=== PATIENT | female | born 1995 | race Caucasian/White ===

== ENCOUNTER 2017-11-19 20:05 | Emergency (ER) | payer OTHER ==
[2017-11-19] MEDS ORDERED: Albuterol/Ipratropium NEB.SOL* Albuterol 2.5 MG/Ipratropium 0.5 MG 3 ML INH ONE (20:44)
[2017-11-19 20:52] LABS: ABS Basophils 0 10^3/ul (0-0.2); ABS Eosinophils 0 10^3/ul (0-0.6); ABS Monocytes 0.8 10^3/ul (0-0.8); ABS Neutrophils 3.9 10^3/ul (1.5-7.7); ABS Nucleated RBC 0 10^3/ul; Eosinophil % 0.4 % (0-6); Hematocrit 41 % (35-47); Hemoglobin 13.8 g/dl (12.0-16.0); Lymphocyte % 29.2 % (25-47); Mean Corpuscular HGB Conc 34 g/dl (31-36); Mean Corpuscular Hemoglobin 31 pg (27-31); Mean Corpuscular Volume 92 fL (80-97); Mean Platelet Volume 9 um3 (7.4-10.4); Nucleated Red Blood Cells % 0; Platelet Count 221 10^3/ul (150-450); Red Blood Count 4.43 10^6/ul (4.0-5.4); Red Cell Distribution Width 13 % (10.5-15); White Blood Count 6.8 10^3/ul (3.5-10.8)
[2017-11-19 21:04] LABS: EGFR Non-African American 95.6 (>60)
--- NOTE | 2017-11-19 21:13 | RAD ---
INDICATION: Pain and swelling. COMPARISON: None TECHNIQUE: Duplex interrogation of the Lowerextremity was performed. FINDINGS: Deep veins: The common femoral, great saphenous, profunda femoris, proximal, mid, and distal deep femoral, popliteal, posterior tibial, and peroneal veins are patent. There is normal compressibility, augmentation, and phasic flow. Superficial veins: There are no findings of superficial thrombophlebitis. Popliteal fossa:There is no evidence of a popliteal cyst. Soft tissues:There are no soft tissue abnormalities. IMPRESSION: Normal examination. No evidence of deep venous thrombosis
[2017-11-19 21:41] VITALS: BP 111/68
--- NOTE | 2017-11-19 21:44 | RAD ---
INDICATION: Cough. Short of breath. COMPARISON: None TECHNIQUE: PA and lateral dual-energy views were obtained. FINDINGS: Bones/Soft Tissues: There are no acute bony findings. Cardiomediastinal: The cardiomediastinal silhouette is normal. Lungs: There are no infiltrates. Pleura: There are no pleural effusions. Other: None IMPRESSION: NEGATIVE EXAMINATION
[2017-11-19] MEDS ORDERED: Potassium Chlor TAB* 20 MEQ TAB.ER PO ONE (21:47)
--- NOTE | 2017-11-19 21:52 | ED ---
Phillip Guzman Gabriel, scribed for Aleksandar Marte MD on 11/19/17 at 2023 . Respiratory - HPI Summary HPI Summary: This patient is a 22 year old F presenting to [facility] accompanied by her friend with a chief complaint of SOB due to cough since 11/17/17. Patient reports cough , nausea, chest tightness, CP (since August), lightheadedness, and diaphoresis. Patient denies LE edema. Patient states she gets an allergy cough every year but it is significantly worse this year. Additionally she reports LE cramping that begins in the morning when she stretches and lasts all day. She is also having an irregular period because she attempted to skip her period by continuing to take her BC pills and was spotting last week and has vaginal bleeding currently, although she is not on her week of sugar pills. Patient has recently traveled 3 hours per car. - History of Current Complaint Chief Complaint: EDShortnessOfBreath Stated Complaint: SOB/DIZZINESS/NAUSEA Time Seen by Provider: 11/19/17 20:15 Hx Obtained From: Patient Onset/Duration: Still Present Timing: Constant Pain Intensity: 0 Character: Cough (Nonproductive) Sputum Amount: None Aggravating Factor(s): Nothing Alleviating Factor(s): Nothing Associated Signs and Symptoms: SOB, Chest Pain, Chest Pain with Cough, Diaphoresis - Allergy/Home Medications Allergies/Adverse Reactions: Allergies Allergy/AdvReac Type Severity Reaction Status Date / Time Clindamycin Allergy Rash Verified 11/19/17 20:10 PMH/Surg Hx/FS Hx/Imm Hx Previously Healthy: Yes Endocrine/Hematology History: Denies: Hx Diabetes, Hx Sickle Cell Disease Cardiovascular History: Denies: Hx Aneurysm, Hx Angina Respiratory History: Denies: Hx Asthma, Hx Chronic Obstructive Pulmonary Disease (COPD), Hx Sleep Apnea GI History: Denies: Hx Cirrhosis, Hx Crohn's Disease History: Denies: Hx Acute Renal Failure, Hx Benign Prostatic Hyperplasia EENT History: Denies: Hx Deafness Neurological History: Denies: Hx CVA, Hx Dementia Infectious Disease History: No Infectious Disease History: Denies: Traveled Outside the [place] in Last 30 Days - Family History Known Family History: Negative: Cardiac Disease, Hypertension, Diabetes, Renal Disease, Respiratory Disease, Seizure Disorder, Blood Disorder - Social History Occupation: Employed Full-time Lives: Alone Alcohol Use: None Hx Substance Use: No Substance Use Type: Reports: None Hx Tobacco Use: No Smoking Status (MU): Never Smoked Tobacco Review of Systems Positive: Skin Diaphoresis Positive: Chest Pain Positive: Shortness Of Breath, Cough Positive: Nausea Positive: Other - LE pain . Negative: Edema Neurological: Other - light headedness All Other Systems Reviewed And Are Negative: Yes Physical Exam Triage Information Reviewed: Yes Vital Signs On Initial Exam: Initial Vitals Temp Pulse Resp BP Pulse Ox 97.9 F 95 16 139/82 100 11/19/17 20:08 11/19/17 20:08 11/19/17 20:08 11/19/17 20:08 11/19/17 20:08 Vital Signs Reviewed: Yes Appearance: Positive: Well-Appearing, No Pain Distress Skin: Positive: Warm, Skin Color Reflects Adequate Perfusion Head/Face: Positive: Normal Head/Face Inspection Eyes: Positive: EOMI ENT: Positive: Normal ENT inspection Neck: Positive: Supple, Nontender Respiratory/Lung Sounds: Positive: Clear to Auscultation, Breath Sounds Present Cardiovascular: Positive: RRR. Negative: Murmur Abdomen Description: Positive: Nontender Musculoskeletal: Positive: Strength/ROM Intact, Other - mild tender right calf. Neurological: Positive: Sensory/Motor Intact, Alert, Oriented to Person Place, Time, CN Intact II-III Psychiatric: Positive: Normal - Bruin Coma Scale Coma Scale Total: 15 Diagnostics - Vital Signs Vital Signs Temp Pulse Resp BP Pulse Ox 11/19/17 20:08 97.9 F 95 16 139/82 100 - Laboratory Result Diagrams: 11/19/17 20:35 11/19/17 20:35 Lab Statement: Any lab studies that have been ordered have been reviewed, and results considered in the medical decision making process. - Radiology CXR Radiology Interpretation Completed By: Radiologist - Negative examination. ED physician has reviewed this report. - EKG 20:31 Cardiac Rate: NL EKG Rhythm: Sinus Rhythm - at 87 BPM EKG Interpretation: normal MI, normal QRS, normal QT, No STEMI - Additional Comments Diagnostic Additional Comments: Venous Doppler study reveals, per radiologist, Normal examination. No evidence of deep venous thrombosis ED physician has reviewed this radiology report. Disposition - Course Course Of Treatment: 22 yr old with right calf pain. Coughing and uri type symptoms with tightness in chest and sob with coughing spells. She is not , her dimer is not high. Doppler of leg is neg. Chest xray ok. Plan dc home on albuterol MDI. FU with pmd. - Diagnoses Provider Diagnoses: Acute bronchitis Discharge - Discharge Plan Condition: Good Disposition: HOME Prescriptions: Albuterol HFA INHALER* [Ventolin HFA Inhaler*] 1 - 2 puff INH Q6H PRN #1 [id number] PRN Reason: Cough Patient Education Materials: Acute Bronchitis (ED) Referrals: [facility] [Outside] No Primary Care Phys,NOPCP [Primary Care Provider] - The documentation as recorded by the Phillip feliciano Gabriel accurately reflects the service I personally performed and the decisions made by , Aleksandar Marte MD.
== END 2017-11-19 22:04 | disposition home or self-care (01) ==
LOC: ED 20:05
DX: J20.9 Acute bronchitis, unspecified (principal); R06.02 Shortness of breath; R07.9 Chest pain, unspecified; R05 Cough; R61 Generalized hyperhidrosis; R42 Dizziness and giddiness
CPT/HCPCS: 36415; 71046; 80053; 83605; 83880; 84484; 84702; 85025; 85379; 87502; 93005; 99282; A9270-GY

== ENCOUNTER 2018-10-08 10:07 | Emergency (ER) | payer OTHER ==
[2018-10-08] MEDS ORDERED: NS 0.9% 1000 ML* 1,000 ML IV ONE (10:54)
[2018-10-08 11:15] LABS: ABS Basophils 0 10^3/ul (0-0.2); ABS Eosinophils 0 10^3/ul (0-0.6); ABS Lymphocytes 2.3 10^3/ul (1.0-4.8); ABS Monocytes 0.3 10^3/ul (0-0.8); ABS Neutrophils 2.3 10^3/ul (1.5-7.7); ABS Nucleated RBC 0 10^3/ul; Eosinophil % 0.9 %; Hematocrit 41 % (35-47); Lymphocyte % 46.4 %; Mean Corpuscular HGB Conc 34 g/dl (31-36); Mean Corpuscular Hemoglobin 31 pg (27-31); Mean Corpuscular Volume 90 fL (80-97); Mean Platelet Volume 8.1 fL (7.4-10.4); Nucleated Red Blood Cells % 0.1; Platelet Count 322 10^3/ul (150-450); Red Cell Distribution Width 13 % (10.5-15); White Blood Count 4.9 10^3/ul (3.5-10.8)
[2018-10-08 11:22] LABS: INR 1.05 (0.77-1.02)
--- NOTE | 2018-10-08 11:32 | ED ---
Abdominal Pain/Female - HPI Summary HPI Summary: Patient presents with upper abdominal pain over the past 6 months but worse in the past 3 days. She reports this started initially as indigestion and was seen by her PCP. She had GI follow-up and testing which all came back negative. She was started on a PPI however reports indigestion continued for 2 weeks after starting this. It eventually went away so she is not sure if it's from medication or just time. She reports as of late she's had more specific right upper quadrant pain that has radiated to her right back and seems to be worse with eating. Her appetite was much more reduced last night and usual although she denies nausea/vomiting/diarrhea (denies hematochezia, melena). Still moving her bowels as usual. Denies dysuria, urinary frequency, urinary urgency, flank pain. She does admit she is on a course of amoxicillin for URI diagnosed last week. She was given amoxicillin in August as well for strep throat. At that time, she developed a yeast infection which was treated with Monistat and his symptoms have resolved. She does not have any new symptoms today of vaginal irritation, discharge or itching. In fact, she denies any lower abdominal or pelvic symptoms. Additionally, she is been taking Sprintec however stopped about a week ago and has had a period since. She has not been sexually active since and has no concern for at this time. H/o ovarian cysts and reports this does not feel the same. No previous history of abdominal surgeries. Has had thyroid assessed with these sx in the past as well - normal for her. - History of Current Complaint Chief Complaint: EDAbdPain Stated Complaint: ABD PAIN Time Seen by Provider: 10/08/18 10:22 Hx Obtained From: Patient, Family/[employer] - male friend, Keto Hx Last Menstrual Period: 08/02/18 Pain Intensity: 5 Allergies/Adverse Reactions: Allergies Allergy/AdvReac Type Severity Reaction Status Date / Time clindamycin Allergy Severe RASH, SOB Verified 08/29/18 19:04 PMH/Surg Hx/FS Hx/Imm Hx Previously Healthy: Yes Endocrine/Hematology History: Denies: Hx Anticoagulant Therapy, Hx Diabetes, Hx Sickle Cell Disease, Hx Thyroid Disease, Hx Anemia, Autoimmune Disease Cardiovascular History: Denies: Hx Aneurysm, Hx Angina Respiratory History: Denies: Hx Asthma, Hx Chronic Obstructive Pulmonary Disease (COPD), Hx Sleep Apnea GI History: Denies: Hx Cirrhosis, Hx Crohn's Disease History: Denies: Hx Acute Renal Failure, Hx Benign Prostatic Hyperplasia Sensory History: Denies: Hx Deafness Neurological History: Denies: Hx CVA, Hx Dementia - Surgical History Surgery Procedure, Year, and Place: WISDOM TEETH EXTRACTION, BILAT EYE SURGERY AGE 5 Infectious Disease History: No Infectious Disease History: Denies: Traveled Outside the [place] in Last 30 Days - Family History Known Family History: Negative: Cardiac Disease, Hypertension, Diabetes, Renal Disease, Respiratory Disease, Seizure Disorder, Blood Disorder - Social History Occupation: Employed Full-time - Scribe Alcohol Use: Occasionally Hx Substance Use: No Substance Use Type: Reports: None Hx Tobacco Use: No Smoking Status (MU): Never Smoked Tobacco Review of Systems Constitutional: Negative Negative: Fever, Chills, Fatigue Cardiovascular: Negative Negative: Palpitations, Chest Pain Respiratory: Negative Negative: Shortness Of Breath, Cough Positive: Abdominal Pain, Other - decreased appetite. Negative: Vomiting, Diarrhea, Nausea Genitourinary: Negative Musculoskeletal: Negative Skin: Negative Neurological: Negative Psychological: Normal All Other Systems Reviewed And Are Negative: Yes Physical Exam Triage Information Reviewed: Yes Vital Signs On Initial Exam: Initial Vitals Temp Pulse Resp BP Pulse Ox 98.4 F 78 14 157/92 99 10/08/18 10:08 10/08/18 10:08 10/08/18 10:08 10/08/18 10:08 10/08/18 10:08 Vital Signs Reviewed: Yes Appearance: Positive: Well-Appearing, No Pain Distress, Well-Nourished Skin: Positive: Warm, Skin Color Reflects Adequate Perfusion, Dry - no erythema , no ecchymosis, no lesions over affected area Head/Face: Positive: Normal Head/Face Inspection Eyes: Positive: Normal, EOMI, EFE, Conjunctiva Clear - anicteric sclera ENT: Positive: Normal ENT inspection, Hearing grossly normal, Pharynx normal - mcuosa moist Neck: Positive: Supple, Nontender, No Lymphadenopathy Respiratory/Lung Sounds: Positive: Clear to Auscultation, Breath Sounds Present. Negative: Rales, Rhonchi, Wheezes Cardiovascular: Positive: Normal, RRR, S1, S2. Negative: Leg Edema Left, Leg Edema Right Abdomen Description: Positive: Soft, Other: - mild TTP over RUQ, EPIGASTRUM AND LUQ - RUQ worst -no rebounding. Negative: CVA Tenderness (R), CVA Tenderness (L ), Distended, Guarding, Hernia @ Bowel Sounds: Positive: Present Pelvic Exam: Positive: Other - declined by pt Musculoskeletal: Positive: Normal, Strength/ROM Intact Neurological: Positive: Normal, Sensory/Motor Intact, Alert, Oriented to Person Place, Time, CN Intact II-III Psychiatric: Positive: Anxious - concerned but polite, cooperative, pleasant Diagnostics - Vital Signs Vital Signs Temp Pulse Resp BP Pulse Ox 10/08/18 10:08 98.4 F 78 14 157/92 99 - Laboratory Lab Results: Lab Results 10/08/18 10/08/18 Range/Units 11:02 11:02 WBC 4.9 (3.5-10.8) 10^3/ul RBC 4.60 (4.00-5.40) 10^6/ul Hgb 14.0 (12.0-16.0) g/dl Hct 41 (35-47) % MCV 90 (80-97) fL MCH 31 (27-31) pg MCHC 34 (31-36) g/dl RDW 13 (10.5-15) % Plt Count 322 (150-450) 10^3/ul MPV 8.1 (7.4-10.4) fL Neut % (Auto) 46.3 % Lymph % (Auto) 46.4 % [place] % (Auto) 5.8 % Eos % (Auto) 0.9 % Baso % (Auto) 0.6 % Absolute Neuts (auto) 2.3 (1.5-7.7) 10^3/ul Absolute Lymphs (auto) 2.3 (1.0-4.8) 10^3/ul Absolute Monos (auto) 0.3 (0-0.8) 10^3/ul Absolute Eos (auto) 0 (0-0.6) 10^3/ul Absolute Basos (auto) 0 (0-0.2) 10^3/ul Absolute Nucleated RBC 0 10^3/ul Nucleated RBC % 0.1 INR (Anticoag Therapy) 1.05 H (0.77-1.02) APTT 34.4 (26.0-36.3) seconds Result Diagrams: 10/08/18 11:02 10/08/18 11:02 Lab Statement: Any lab studies that have been ordered have been reviewed, and results considered in the medical decision making process. Abdominal Pain Fem Course/Dx - Course Course Of Treatment: Pt's labs and imaging are w/o acute findings. Offered pelvic exam 2 x as she has h/o ovarian cyst and recently stopped OBC however her sx are upper ab and started prior to stopping OBC - hcg negative for preg today. Will trial GI cocktail and discussed cessation of eliminating NSAID's as she was started on PPI in the past and admits she's not been taking but has been taking ibuprofen for URI sx. Discussed if GI cocktail helps, she will follow GERD education handout. Presentation along w/ labs, vital, etc are not significant to perform CT but if worse, may benefit from further testing. She is still eating, drinking, moving bowels and urinating w/o difficulty. Reviewed danger s/sx of when to return to ED. Pt agrees w/ plan. - Diagnoses Provider Diagnoses: Abdominal pain Discharge - Sign-Out/Discharge Documenting (check all that apply): Patient Departure - Discharge Plan Condition: Stable Disposition: HOME Patient Education Materials: Gastroesophageal Reflux Disease in Children (ED), Acute Abdominal Pain (ED) Referrals: [facility] [Primary Care Provider] - Additional Instructions: The definitive cause of your pain was not identified today however gallstones were ruled out. We discussed possibility of dysfunctional gallbladder which may be followed up with [facility] via a HIDA CCK test. If your GI cocktail provides relief, you may find relief by following the education attached to the GERD handout. This includes but is not limited to cessation of NSAIDs, restart PPI and referral to gastroenterology if symptoms persist. If pain is worse in the meantime or you develop fever, chills, vomiting, diarhhea, bloody stools, dark tarry stools, vaginal symptoms, return to the ED. While taking your amoxicillin, you may supplement probiotics (ie. Yogurt and/or capsules of L. acidophilus, L. bifidus, L. casei, etc) - Billing Disposition and Condition Condition: STABLE Disposition: Home
[2018-10-08 11:34] LABS: EGFR Non-African American 100.6 (>60)
[2018-10-08 12:27] LABS: Urine Appearance Cloudy; Urine Blood Negative (Negative); Urine Color Yellow; Urine Ketones Negative (Negative); Urine Protein Negative (Negative); Urine Specific Gravity 1.012 (1.010-1.030); Urine Urobilinogen Negative (Negative)
[2018-10-08] MEDS ORDERED: Lidocaine 2% VISCOUS* 15 ML UDC PO ONE (12:37)
[2018-10-08] MEDS ORDERED: Al Hydrox/Mg Hydrox/Simet LIQ* 30 ML UDC PO ONE (12:37)
[2018-10-08 12:53] VITALS: BP 112/76
== END 2018-10-08 13:06 | disposition home or self-care (01) ==
LOC: ED 10:07
DX: R10.11 Right upper quadrant pain (principal); J06.9 Acute upper respiratory infection, unspecified
CPT/HCPCS: 36415; 76705; 80053; 81003; 83605; 83690; 83735; 84702; 85025; 85610; 85730; 86140; 96360; 99282; A9270-GY

== ENCOUNTER 2019-01-27 21:09 | Emergency (ER) | payer OTHER ==
[2019-01-28 00:09] LABS: ABS Basophils 0 10^3/ul (0-0.2); ABS Eosinophils 0.1 10^3/ul (0-0.6); ABS Lymphocytes 4.1 10^3/ul (1.0-4.8); ABS Monocytes 0.5 10^3/ul (0-0.8); ABS Neutrophils 5.3 10^3/ul (1.5-7.7); ABS Nucleated RBC 0 10^3/ul; Eosinophil % 0.7 %; Hematocrit 39 % (33-41); Hemoglobin 13.1 g/dL (12.0-16.0); Mean Corpuscular HGB Conc 34 g/dL (31-36); Mean Corpuscular Hemoglobin 31 pg (27-31); Mean Corpuscular Volume 91 fL (80-97); Mean Platelet Volume 8.5 fL (7.4-10.4); Nucleated Red Blood Cells % 0.1; Platelet Count 260 10^3/uL (150-450); Red Blood Count 4.25 10^6 /uL (3.70-4.87); Red Cell Distribution Width 13 % (10.5-15)
[2019-01-28] MEDS ORDERED: Ondansetron INJ* 2 MG/ML VIAL IV ONE (00:11)
[2019-01-28] MEDS ORDERED: NS 0.9% 1000 ML** 1,000 ML IV ONE (00:11)
[2019-01-28] MEDS ORDERED: Ketorolac INJ* 30 MG/ML 1 ML VIAL IV PUSH ONE (00:12)
[2019-01-28 00:24] LABS: ALT 11 U/L (7-52); AST 18 U/L (13-39); Albumin 4.2 g/dL (3.2-5.2); Albumin/Globulin Ratio 1.6 (1-3); Alkaline Phosphatase 35 U/L (34-104); Anion Gap 4 mmol/L (2-11); BUN/Creatinine Ratio 15.9 (8-20); Blood Urea Nitrogen 11 mg/dL (6-24); C Reactive Protein 2.07 mg/L (<8.01); CO2 Carbon Dioxide 28 mmol/L (22-32); Chloride 105 mmol/L (101-111); EGFR Non-African American 107.4 (>60); Globulin 2.7 g/dL (2-4); Glucose 108 mg/dL (70-100); Potassium 3.2 mmol/L (3.5-5.0); Sodium 137 mmol/L (135-145); Total Protein 6.9 g/dL (6.4-8.9)
[2019-01-28 00:30] LABS: HCG Pregnancy < 0.60 mIU/mL
--- NOTE | 2019-01-28 00:52 | ED ---
GI/ HPI - HPI Summary HPI Summary: 23 year old female presents with right lower quadrant pain today. She has history of right upper quadrant pain that has been worked up prior. She states she had gallbladder ultrasound and HIDA scan in Nov that were negative. States that pain started yesterday in the right upper quadrant and moved to right lower quadrant. She's never had pain there before. She admits to nausea but no vomiting. She denies any fevers. She admits to decrease in appetite. No urinary symptoms. No flank pain. She states pain does radiate to the back. Hasn't taking for her symptoms. No abnormal vaginal discharge. has no medical conditions. - History of Current Complaint Chief Complaint: EDAbdPain Time Seen by Provider: 01/28/19 00:07 Stated Complaint: RIGHT LOWER QUADRANT ABD PAIN PER PT Hx Last Menstrual Period: 08/02/18 Pain Intensity: 9 - Allergy/Home Medications Allergies/Adverse Reactions: Allergies Allergy/AdvReac Type Severity Reaction Status Date / Time clindamycin Allergy Severe RASH, SOB Verified 01/27/19 21:30 PMH/Surg Hx/FS Hx/Imm Hx Endocrine/Hematology History: Denies: Hx Anticoagulant Therapy, Hx Diabetes, Hx Sickle Cell Disease, Hx Thyroid Disease, Hx Anemia Cardiovascular History: Denies: Hx Aneurysm, Hx Angina, Hx Hypertension Respiratory History: Denies: Hx Asthma, Hx Chronic Obstructive Pulmonary Disease (COPD), Hx Sleep Apnea GI History: Denies: Hx Cirrhosis, Hx Crohn's Disease History: Denies: Hx Acute Renal Failure, Hx Benign Prostatic Hyperplasia, Hx Renal Disease Sensory History: Denies: Hx Deafness Neurological History: Denies: Hx CVA, Hx Dementia - Surgical History Surgery Procedure, Year, and Place: WISDOM TEETH EXTRACTION, BILAT EYE SURGERY AGE 5 Infectious Disease History: No Infectious Disease History: Denies: Traveled Outside the [place] in Last 30 Days - Family History Known Family History: Negative: Cardiac Disease, Hypertension, Diabetes, Renal Disease, Respiratory Disease, Seizure Disorder, Blood Disorder - Social History Alcohol Use: Occasionally Hx Substance Use: No Substance Use Type: Reports: None Hx Tobacco Use: No Smoking Status (MU): Never Smoked Tobacco Review of Systems Negative: Fever Negative: Chest Pain Negative: Shortness Of Breath Positive: Abdominal Pain, Vomiting, Nausea. Negative: Diarrhea All Other Systems Reviewed And Are Negative: Yes Physical Exam Triage Information Reviewed: Yes Vital Signs On Initial Exam: Initial Vitals Temp Pulse Resp BP Pulse Ox 99.9 F 116 16 152/99 100 01/27/19 21:28 01/27/19 21:28 01/27/19 21:28 01/27/19 21:28 01/27/19 21:28 Vital Signs Reviewed: Yes Appearance: Positive: Well-Appearing Skin: Positive: Warm, Dry Head/Face: Positive: Normal Head/Face Inspection Eyes: Positive: Normal, Conjunctiva Clear ENT: Positive: Pharynx normal Respiratory/Lung Sounds: Positive: Clear to Auscultation, Breath Sounds Present Cardiovascular: Positive: Normal, RRR Abdomen Description: Positive: Soft, McBurney's Point Tenderness, Other: - tenderness RLQ, pos obturator Bowel Sounds: Positive: Present Musculoskeletal: Positive: Normal Neurological: Positive: Normal Psychiatric: Positive: Normal Diagnostics - Vital Signs Vital Signs Temp Pulse Resp BP Pulse Ox 01/28/19 00:25 80 119/75 98 01/28/19 00:00 78 99 01/27/19 23:55 73 112/74 100 01/27/19 23:54 74 99 01/27/19 21:28 99.9 F 116 16 152/99 100 - Laboratory Lab Results: Lab Results 01/27/19 01/27/19 01/27/19 Range/Units 23:58 23:58 23:58 WBC 10.0 (3.5-10.8) 10^3/uL RBC 4.25 (3.70-4.87) 10^6 /uL Hgb 13.1 (12.0-16.0) g/dL Hct 39 (33-41) % MCV 91 (80-97) fL MCH 31 (27-31) pg MCHC 34 (31-36) g/dL RDW 13 (10.5-15) % Plt Count 260 (150-450) 10^3/uL MPV 8.5 (7.4-10.4) fL Neut % (Auto) 52.8 % Lymph % (Auto) 41.0 % [place] % (Auto) 5.3 % Eos % (Auto) 0.7 % Baso % (Auto) 0.2 % Absolute Neuts (auto) 5.3 (1.5-7.7) 10^3/ul Absolute Lymphs (auto) 4.1 (1.0-4.8) 10^3/ul Absolute Monos (auto) 0.5 (0-0.8) 10^3/ul Absolute Eos (auto) 0.1 (0-0.6) 10^3/ul Absolute Basos (auto) 0 (0-0.2) 10^3/ul Absolute Nucleated RBC 0 10^3/ul Nucleated RBC % 0.1 Sodium 137 (135-145) mmol/L Potassium 3.2 L (3.5-5.0) mmol/L Chloride 105 (101-111) mmol/L Carbon Dioxide 28 (22-32) mmol/L Anion Gap 4 (2-11) mmol/L BUN 11 (6-24) mg/dL Creatinine 0.69 (0.51-0.95) mg/dL Est GFR ( Amer) 130.0 (>60) Est GFR (Non-Af Amer) 107.4 (>60) BUN/Creatinine Ratio 15.9 (8-20) Glucose 108 H (70-100) mg/dL Lactic Acid 0.5 (0.5-2.0) mmol/L Calcium 9.0 (8.6-10.3) mg/dL Total Bilirubin 0.40 (0.2-1.0) mg/dL AST 18 (13-39) U/L ALT 11 (7-52) U/L Alkaline Phosphatase 35 (34-104) U/L C-Reactive Protein 2.07 (<8.01) mg/L Total Protein 6.9 (6.4-8.9) g/dL Albumin 4.2 (3.2-5.2) g/dL Globulin 2.7 (2-4) g/dL Albumin/Globulin Ratio 1.6 (1-3) Lipase 20 (11.0-82.0) U/L Beta HCG, Quant < 0.60 mIU/mL Result Diagrams: 01/27/19 23:58 01/27/19 23:58 Lab Statement: Any lab studies that have been ordered have been reviewed, and results considered in the medical decision making process. - Ultrasound No standard instances Ultrasound Interpretation Completed By: Radiologist Summary of Ultrasound Findings: IMPRESSION: No sonographic findings to correlate with patient's symptomatology. Re-Evaluation - Re-Evaluation First Eval Re-Evaluation Time: 01:00 Change: Improved Comment: feeling better after toradol Second Eval Re-Evaluation Time: 02:25 Comment: discussed results GIGU Course/Dx - Course Course Of Treatment: 23 year old female presents with right lower quadrant pain today. She has history of right upper quadrant pain that has been worked up prior. She states she had gallbladder ultrasound and HIDA scan in Nov that were negative. States that pain started yesterday in the right upper quadrant and moved to right lower quadrant. She's never had pain there before. She admits to nausea but no vomiting. She denies any fevers. She admits to decrease in appetite. No urinary symptoms. No flank pain. She states pain does radiate to the back. Hasn't taking for her symptoms. No abnormal vaginal discharge. has no medical conditions. On exam tenderness right lower quadrant. No rebound. Positive obutrator. White blood count normal. CRP normal. Urine is likely contaminant. Gallbladder ultrasound is normal. patient signed out to dr Hernandez pending CT for dispo. - Diagnoses Differential Diagnoses - Female: Appendicitis, Gall Bladder Disease, Gastroenteritis (Viral), Ovarian Cyst Provider Diagnoses: Abdominal pain Discharge - Sign-Out/Discharge Documenting (check all that apply): Sign-Out Patient Signing out patient TO: Vane Hernandez - Discharge Plan Referrals: No Primary Care Phys,NOPCP [Primary Care Provider] -
[2019-01-28 01:07] LABS: Urine Appearance Cloudy; Urine Bacteria Absent (Absent); Urine Bilirubin Negative (Negative); Urine Blood Negative (Negative); Urine Color Yellow; Urine Glucose Negative (Negative); Urine Ketones 1+ (Negative); Urine Nitrite Negative (Negative); Urine Protein Negative (Negative); Urine Red Blood Cell Absent (Absent); Urine Specific Gravity 1.012 (1.010-1.030); Urine Squamous Epithelial Cell Present (Absent); Urine Urobilinogen Negative (Negative); Urine White Blood Cell Trace(0-5/hpf) (Absent)
[2019-01-28] MEDS ORDERED: Iohexol 300* (CONTRAST) 10 ML SDV IV ONE (01:46)
--- NOTE | 2019-01-28 03:14 | ED ---
Progress - Progress Note Progress Note: The pt is a 23 y/o F signed out from KIRBY Smith, pending CT abd/pelv. - Results/Orders Results/Orders: CT abd/pelv 1. No CT findings to correlate with patients symptomatology. Specifically no appendicitis. 2. Left ovarian mature teratoma. Recommend surgical consult. ED physician has reviewed this report. Re-Evaluation - Re-Evaluation First Eval Re-Evaluation Time: 01:00 Change: Improved Comment: feeling better after toradol Second Eval Re-Evaluation Time: 02:25 Comment: discussed results Course/Dx - Course Course Of Treatment: 23 year old female presents with right lower quadrant pain today. She has history of right upper quadrant pain that has been worked up prior. She states she had gallbladder ultrasound and HIDA scan in Nov that were negative. States that pain started yesterday in the right upper quadrant and moved to right lower quadrant. She's never had pain there before. She admits to nausea but no vomiting. She denies any fevers. She admits to decrease in appetite. No urinary symptoms. No flank pain. She states pain does radiate to the back. Hasn't taking for her symptoms. No abnormal vaginal discharge. has no medical conditions. On exam tenderness right lower quadrant. No rebound. Positive obutrator. White blood count normal. CRP normal. Urine is likely contaminant. Gallbladder ultrasound is normal. patient signed out to dr Hernandez pending CT for dispo. Signed out from KIRBY Smith, the CT abd/pelv shows a L ovarian teratoma. She feels better and will be sent home with a dx of teratoma and instructions to follow up with parts inspector. - Diagnoses Provider Diagnoses: Teratoma Discharge - Sign-Out/Discharge Documenting (check all that apply): Patient Departure Patient Received Moderate/Deep Sedation with Procedure: No - Discharge Plan Condition: Stable Disposition: HOME Referrals: [facility] @ [Outside] Nisa Sparks MD [Medical Doctor] - Additional Instructions: Please follow up with parts inspector of [place] within the next 2-3 days, as well as your primary care provider. Return to the emergency department with any new or worsening symptoms. - Attestation Statements Document Initiated by Scribe: Yes Documenting Scribe: Shanice Regalado Provider For Whom Scribe is Documenting (Include Credential): Vane Hernandez MD. Scribe Attestation: Shanice Guzman, scribed for Vane Hernandez MD. on 01/28/19 at 0338. Status of Scribe Document: Ready
[2019-01-28 04:05] VITALS: BP 109/60
== END 2019-01-28 04:00 | disposition home or self-care (01) ==
LOC: ED 21:09
DX: D27.1 Benign neoplasm of left ovary (principal); R10.31 Right lower quadrant pain
CPT/HCPCS: 36415; 74177; 76705; 80053; 81003; 81015; 83605; 83690; 84702; 85025; 86140; 87086; 96361; 96374; 96375; 99284; J1885; J2405; Q9967

== ENCOUNTER 2019-05-07 07:22 | Day surgery (SDC) | payer OTHER ==
[~2019-05-07 07:22] MED LIST: Buffered Lidocaine 1% SYRIN* 1 ML/SYRINGE INTRADERM ONE; Dexamethasone IV* 4 MG/ML 1 ML (4 MG) IV SLOW PU ONE; Famotidine IV* 10 MG/ML 2 ML (20 mg) IV ONE; Lactated Ringers 1000 ML Bag* 1,000 ML IV SCH
[2019-05-07] MEDS ORDERED: Dexamethasone IV* 4 MG/ML 1 ML (4 MG) ONE (07:29)
[2019-05-07] MEDS ORDERED: Famotidine IV* 10 MG/ML 2 ML (20 mg) ONE (07:30)
[2019-05-07] MEDS ORDERED: Buffered Lidocaine 1% SYRIN* 1 ML/SYRINGE INTRADERM ONE (07:45)
[2019-05-07] MEDS ORDERED: Midazolam* 1 MG/ML 5 ML VIAL (5 MG) ONE (08:33)
[2019-05-07] MEDS ORDERED: fentaNYL* 50 MCG/ML 5 ML VIAL (250 MCG VIAL) ONE (08:33)
[2019-05-07] MEDS ORDERED: VASOPRESSIN 20 UNITS/ML 1 ML VIAL ONE (08:54)
[2019-05-07] MEDS ORDERED: Sodium Bicarbonate 8.4% SYR* 10 ML SYRINGE IV ONE (09:10)
[2019-05-07] MEDS ORDERED: Ondansetron INJ* 2 MG/ML VIAL ONE (09:10)
[2019-05-07] MEDS ORDERED: Lidocaine 2% w/ EPI 1:200,000* 20 ML VIAL ONE (09:10)
[2019-05-07] MEDS ORDERED: Ketorolac INJ* 30 MG/ML 1 ML VIAL ONE (09:10)
[2019-05-07] MEDS ORDERED: Propofol* 10 MG/ML 20 ML BTL ONE (09:10)
[2019-05-07] MEDS ORDERED: Lidocaine 2% PF * 5 ML VIAL ONE (09:10)
[2019-05-07] MEDS ORDERED: fentaNYL* 50 MCG/ML 2 ML VIAL (100 MCG VIAL) ONE ×2 (09:11→13:00)
[2019-05-07] MEDS ORDERED: Phenylephrine 40 MCG/ML SYRINGE ONE (09:37)
[2019-05-07] MEDS ORDERED: HYDROmorphone INJ1* 1 MG/ML SYRINGE IV PRN (09:56)
[2019-05-07] MEDS ORDERED: Scopolamine 1.5 mg* PATCH TRANSDERM PRN (09:56)
[2019-05-07] MEDS ORDERED: Naloxone* 0.4 MG/ML 1 ML VIAL IV PRN (09:56)
[2019-05-07] MEDS ORDERED: fentaNYL* 50 MCG/ML 2 ML VIAL (100 MCG VIAL) IV PRN (09:56)
[2019-05-07] MEDS ORDERED: oxyCODONE/Acetamin 5/325 MG* TAB PO PRN (09:56)
[2019-05-07] MEDS ORDERED: DiMENhydriNATE IV* 50 MG/ML VIAL IV PUSH PRN (09:56)
[2019-05-07] MEDS ORDERED: Ondansetron INJ* 2 MG/ML VIAL IV PRN (09:56)
[2019-05-07] MEDS ORDERED: oxyCODONE/Acetamin 5/325 MG* TAB ONE (13:00)
--- NOTE | 2019-05-07 13:14 | OP ---
OPERATIVE REPORT: DATE OF OPERATION: 05/07/19 DATE OF : [birth year] SURGEON: Karl Gann MD ACTIVITY ASSISTANT: Dr. Sparks. ANESTHESIOLOGIST: Dr. Dickey. ANESTHESIA: Epidural. PRE-OP DIAGNOSIS: Left dermoid cyst. POST-OP DIAGNOSIS: Left dermoid cyst. OPERATIVE PROCEDURE: Mini laparotomy with left ovarian cystectomy. INDICATIONS: This patient is a 23-year-old 0 who was noted to have an approximately 5 cm left ovarian dermoid cyst. This was found incidentally during imaging for primarily right-sided pain. She was extensively counseled and desired to have this removed, so consent was signed. MATERIALS TO LAB: Left dermoid cyst. ESTIMATED BLOOD LOSS: Less than 20 cc. URINE OUTPUT: 100 cc. IV FLUID: 1300 cc lactated Ringer's. FINDINGS: Limited view of the pelvis, but the uterus, fallopian tubes and right ovary appeared and palpated normal. The left ovary with approximately 5 x 3 cm dermoid cyst. COMPLICATIONS: None. DESCRIPTION OF PROCEDURE: The risks, benefits and alternatives were described to the patient and informed consent was obtained. The patient was taken to the operating room with IV running where epidural anesthesia was induced and found to be adequate. The patient was prepped and draped in the normal sterile fashion in the supine position. Leon catheter was placed prior to the prep. A time-out was performed. Approximately 4 cm to 5 cm incision was then made in a transverse fashion about 2 cm above the umbilicus. This was carried down to the fascia through the subcutaneous tissues using the Bovie. The fascia was then scored in the midline using the Bovie and the incision was extended using Francois scissors. The rectus muscles were dissected off the fascia using sharp and blunt dissection. The muscles were then in the midline bluntly using a Mi clamp. The peritoneum was then entered sharply using Metzenbaum scissors. Once the mass was able to be palpated, a small Francisco Javier retractor was placed into the incision and rolled down. Two moistened mini-laparotomy sponges were then placed into the abdomen to keep the bowel above the incision. Using a small retractor the left ovary was able to be gently lifted to the level of the incision and on to the surface of the abdomen. A moistened mini-laparotomy sponge was then placed around it in case there was any drainage. A 15-blade scalpel was then used to make a thin score along the length of the ovary. Metzenbaum scissors were then used to gently dissect the cyst wall from beneath the ovarian serosa. This was done gently and carefully and the entire cyst was able to be removed intact. A small amount of bleeding at the base of the cyst site was made hemostatic using a small amount of cautery. The ovary was then closed using 2 pursestring type sutures within the cyst site to close the space. This was done with 3-0 Vicryl. 3-0 Vicryl was then also used to close the serosal surface using an imbricating stitch. At that time, there was excellent hemostasis present. The ovary was returned to the pelvis and the laparotomy sponges were removed. The Francisco Javier retractor was then removed as well. The peritoneum was reapproximated using 3-0 Vicryl in a running stitch. The fascia was then closed with 0-Vicryl in a running stitch. The skin was then closed with 4-0 Monocryl in a subcuticular stitch. Mastisol and Steri- Strips were then placed over the incision and this was covered with a sterile bandage. The patient tolerated the procedure well. Sponge, lap and needle counts were correct x2. [id number]/[facility] #: [id number] MTDD
[2019-05-07 14:52] VITALS: BP 100/62
== END 2019-05-07 14:52 | disposition home or self-care (01) ==
LOC: OR 07:22
PROVIDERS: ATTEND Obstetrics & Gynecology
DX: D27.1 Benign neoplasm of left ovary (principal)
CPT/HCPCS: 81025; 88305; A9270-GY; J1100; J1885; J2250; J2405; J2704; J3010

== ENCOUNTER 2019-08-06 10:56 | Emergency (ER) | payer OTHER ==
--- NOTE | 2019-08-06 11:11 | UC ---
Complaint Female HPI - HPI Summary HPI Summary: 24 yo female presents with vaginal discharge. She tells me that over the last 3 days she has had increased vaginal discharge with odor. Discharge is white and thin in color. She has been sexually active, but denies any concern for STDs today. Denies fever, chills, abdominal pain, n/v, dysuria. - History Of Current Complaint Stated Complaint: PERSONAL Time Seen by Provider: 08/06/19 11:10 Hx Obtained From: Patient Hx Last Menstrual Period: 08/02/18 Onset/Duration: Gradual Onset Severity Initially: Mild Severity Currently: Mild Pain Intensity: 3 Pain Scale Used: 0-10 Numeric - Allergies/Home Medications Allergies/Adverse Reactions: Allergies Allergy/AdvReac Type Severity Reaction Status Date / Time clindamycin Allergy Severe RASH, SOB Verified 08/06/19 11:13 PMH/Surg Hx/FS Hx/Imm Hx - Additional Past Medical History Additional PMH: None Other History Of: Negative For: Anticoagulant Therapy - Surgical History Surgical History: Yes Surgery Procedure, Year, and Place: WISDOM TEETH EXTRACTION, BILAT EYE SURGERY AGE 5 - Family History Known Family History: Negative: Cardiac Disease, Hypertension, Diabetes, Renal Disease, Respiratory Disease, Seizure Disorder, Blood Disorder - Social History Occupation: Employed Part-time Lives: With Family Alcohol Use: Occasionally Substance Use Type: None Smoking Status (MU): Never Smoked Tobacco Review of Systems All Other Systems Reviewed And Are Negative: Yes Constitutional: Positive: Negative Skin: Positive: Negative Respiratory: Positive: Negative Cardiovascular: Positive: Negative Gastrointestinal: Positive: Negative Genitourinary: Positive: Vaginal/Penile Discharge Neurological: Positive: Negative Psychological: Positive: Negative Physical Exam - Summary Physical Exam Summary: GENERAL: NAD. WDWN. No pain distress. SKIN: No rashes, sores, lesions, or open wounds. NECK: Supple. Nontender. No lymphadenopathy. CHEST: CTAB. No r/r/w. No accessory muscle use. Breathing comfortably and in no distress. CV: RRR. Without m/r/g. Pulses intact. Cap refill <2seconds ABDOMEN: Soft. NTTP. No CVA tenderness. Bowel sounds present NEURO: Alert. PSYCH: Age appropriate behavior. Triage Information Reviewed: Yes Vital Signs: Vital Signs: Temp Pulse Resp BP Pulse Ox 97.9 F 84 16 120/90 100 08/06/19 11:09 08/06/19 11:09 08/06/19 11:09 08/06/19 11:09 08/06/19 11:09 Vital Signs Reviewed: Yes Pelvic Exam: Positive: External Exam Normal, No Cerv. Motion Tender, Discharge - Moderate milky white, Other - Exam assisted by Mireille DELUCA. Negative: Active Bleeding, Blood, Lesions, Tender Adnexa, Tender Uterus, Ulcers Complaint Female Dx - Course Course Of Treatment: Exam consistent with BV. Will treat for this and send culture for affirm testing. She declines STD testing today. - Differential Dx/Diagnosis Provider Diagnosis: Bacterial vaginosis Discharge ED - Sign-Out/Discharge Documenting (check all that apply): Patient Departure All imaging exams completed and their final reports reviewed: No Studies - Discharge Plan Condition: Stable Disposition: HOME Prescriptions: metroNIDAZOLE [Metronidazole 0.75 % gel] 1 applic TOPICAL DAILY #5 gel Patient Education Materials: Bacterial Vaginosis (ED) Referrals: No Primary Care Phys,NOPCP [Primary Care Provider] - Additional Instructions: If you develop a fever, shortness of breath, chest pain, new or worsening symptoms - please call your PCP or go to the ED immediately. - Billing Disposition and Condition Condition: STABLE Disposition: Home
[2019-08-06 11:13] VITALS: BP 120/90
== END 2019-08-06 11:34 | disposition home or self-care (01) ==
LOC: UCEAST 10:56
DX: N76.0 Acute vaginitis (principal)
CPT/HCPCS: 87480; 87510; 87661; 99212; G0463